=== PATIENT | male | born 1945 | race Caucasian/White ===

== ENCOUNTER 2020-05-24 06:33 | Emergency (ER) | payer OTHER ==
[~2020-05-24] VITALS: Ht 188 cm; Wt 86.2 kg
--- NOTE | ~2020-05-24 | EMS ---
[address] [address] EMS Patient Care Report Name: ISHA VILLEGAS Room #: DEP DEB Banks#: [id number] Admission: 05/24/20 Attend Phys: Discharge: 05/24/20 Date of : 49 Report #: [id number] THIS REPORT FOR: //name// Report Transmitted: 05/24/2020 12:52 EMS Care Summary [facility] MED-ACT Incident [id number] @ 05/24/2020 05:50 Incident Location [address] [place] [address] Patient ISHA VILLEGAS Male, 74 Years 1945 Patient Address [address] [place] [address] Patient History Chronic Obstructive Pulmonary Disease (COPD),Hypertension (HTN),Stroke/CVA,Anxiety, Patient Medications Eliquis, Losartan, Xanax, Buspar, Tamsulosin, Singulair, Simvastatin, Citalopram, Rosuvastatin, Chief Complaint shortness of breath Disposition Transported No Lights/[place] Reason Breathing Problem Transported To [facility] Narrative Pt says he has been having increased difficulty breathing recently. He says that he was not able to sleep very much last night. He says that he feels very anxious sometimes and so he took a "half a xanax" and thinks that that helped a little. Pt has a hx of COPD and is on O2 by nc at 2 LPM at home. He denies [address] [place] [address] EMS Patient Care Report Name: ISHA VILLEGAS Room #: DEP [facility].R.#: [id number] Admission: 05/24/20 Attend Phys: Discharge: 05/24/20 Date of : 49 Report #: [id number] any recent illness. He denies any chest discomfort. He does continue to smoke quite a bit. He had a stroke two years ago and says that he easily becomes anxious since then. He agrees to go to the hospital but does not want to go back to [facility] which is where he has always gone in the past. he says that his doctor "quit him". He wants to go to [facility] this morning for evaluation. [employer] responders on scene had increased his O2 to 3 LPM for shortness of breath. Pt appeared moderately anxious upon EMS contact. Pt seemed to relax when distracted about nonmedical issues. Secured to cot in sitting position. O2 continued by nc. Surgical mask applied. EKG. ER contacted enroute. r/r no further orders. Prepared for IV start. Pt began to have a coughing fit and so SL was not attempted prior to arrival at ER. Released with report in ER. Initial Vitals @PTAP: 76,R: 24,BP: 169/83,Pain: 0/10,GCS: 15,SpO2: 96,Revised Trauma: 12, @06:28P: 81,R: 20,GCS: 15,SpO2: 95, @06:18P: 85,R: 20,Pain: 0/10,GCS: 15,Glucose: 85,SpO2: 96, @06:19P: 82,R: 20,BP: 170/92,GCS: 15,SpO2: 95,Revised Trauma: 12, Assessments @06:15MENTAL:Event Oriented,Time Oriented,Person Oriented,SKIN:No Abnormalities,HEENT:Eyes: Right Pupil: 4-mm,Eyes: Left Pupil: 4-mm,Head/Face: No Abnormalities,LUNG SOUNDS:General: No Abnormalities,Left Upper: No Abnormalities,Right Upper: No Abnormalities,Left Lower: No Abnormalities,Right Lower: No Abnormalities,ABDOMEN:General: No Abnormalities,Left Upper: No Abnormalities,Right Upper: No Abnormalities,Left Lower: No Abnormalities,Right Lower: No Abnormalities,PELVIS//GI:No Abnormalities,EXTREMITIES:Capillary Refill: Left Upper: < 2 Sec,Left Arm: No Abnormalities,Right Arm: No Abnormalities,Left Leg: No Abnormalities,Right Leg: No Abnormalities,PULSE:Radial: 2+ Normal,NEURO: Impression Shortness of breath Procedures @06:15ALS AssessmentResponse: UnchangedSucceeded Timeline ITEM REPAIR MANAGER,BP: 169/83 M,PULSE: 76,RR: 24 R,SPO2: 96 Ox,ETCO2: ,BG: ,PAIN: 0,GCS: 15, 05:49,Call Received 05:49,Psap Call 05:50,Dispatched 05:52,En Route 05:57,On Scene 05:59,At Patient [address] [address] EMS Patient Care Report Name: ISHA VILLEGAS Room #: CATE Banks#: [id number] Admission: 05/24/20 Attend Phys: Discharge: 05/24/20 Date of : 49 Report #: [id number] 06:14,Depart Scene 06:15,ALS Assessment,Response: UnchangedSucceeded, 06:18,BP: / M,PULSE: 85,RR: 20 R,SPO2: 96 Ox,ETCO2: ,B,PAIN: 0,GCS: 15, 06:19,BP: 170/92 M,PULSE: 82,RR: 20 R,SPO2: 95 Ox,ETCO2: ,BG: ,PAIN: ,GCS: 15, 06:28,BP: / M,PULSE: 81,RR: 20 R,SPO2: 95 Ox,ETCO2: ,BG: ,PAIN: ,GCS: 15, 06:30,At Destination 06:54,Call Closed Disclaimer v1.1 Copyright 2020 [employer] This EMS Care Summary contains data elements from the applicable legal record (which may be displayed differently). It is designed to provide pertinent information for the following purposes: continuity of care, clinical quality, and state data reporting. The complete legal record is available to ED staff and administrators of the receiving hospital in [employer] Patient Tracker. All data is provided "as is."
[2020-05-24] MEDS ORDERED: ELIQUIS5 MG PO (06:49)
[2020-05-24] MEDS ORDERED: PROVENTIL HFA6.7 G1 INH (06:50)
[2020-05-24 07:31] LABS: ABSOLUTE NEUTROPHILS 3.6 thou/uL (1.4-8.2); EOSINOPHILS 2.9 % (0.0-3.0); HEMATOCRIT 47.5 % (42.0-52.0); LYMPHOCYTES 19.6 % (24.0-44.0); MCH 30.7 pg (26.0-34.0); MCHC 33.7 g/dL (28.0-37.0); MCV 91.1 fL (80.0-100.0); PLATELET COUNT 140 thou/uL (150-400); POLYS 69.5 % (36.0-66.0); RBC 5.21 mil/uL (4.50-6.00); RDW 14.3 % (10.5-14.5); WBC 5.2 thou/uL (4.0-11.0)
[2020-05-24 07:33] LABS: ANION GAP 9 mmol/L (7-16); BUN 5 mg/dL (7-18); CALCIUM 8.7 mg/dL (8.5-10.1); CHLORIDE 102 mmol/L (98-107); CO2 28 mmol/L (21-32); CREATININE 0.8 mg/dL (0.7-1.3); GLUCOSE 88 mg/dL (74-106); POTASSIUM 3.7 mmol/L (3.5-5.1); SODIUM 139 mmol/L (136-145)
[2020-05-24 07:43] LABS: ALBUMIN 3.5 g/dL (3.4-5.0); MAGNESIUM 1.8 mg/dL (1.8-2.4); SGOT 23 U/L (15-37); SGPT 16 U/L (30-65); TOTAL PROTEIN 6.4 g/dL (6.4-8.2); TROPONIN-I <0.06 ng/mL (<0.06)
[2020-05-24 09:33] LABS: BE(vivo) 1.8 mmol/L (-2 to +3); HCO3 26.8 mmol/L (22.0-26.0); PCO2 VENOUS 43.3 mmHg (41.0-51.0); PO2 VENOUS 63.7 mmHg (35.0-45.0)
[2020-05-24] MEDS ORDERED: ATIVAN0.5 M1 PO (09:46)
[2020-05-24] MEDS ORDERED: VENTOLIN HFA 1818 GM INH (09:46)
[2020-05-24] MEDS ORDERED: DOXYCYCLINE 10100 MG PO (09:46)
[2020-05-24] MEDS ORDERED: PREDNISONE 20 M20 MG PO (09:46)
[2020-05-24 12:18] VITALS: BP 156/87
--- NOTE | 2020-05-26 08:02 | EKG ---
[facility] [place] [address] ELECTROCARDIOGRAM REPORT Name: ISHA VILLEGAS Room #: DEP [facility]#: [id number] Admission: 05/24/20 Attend Phys: Discharge: 05/24/20 Date of : 49 Report #: [id number] THIS REPORT FOR: cc: Tee Buenrostro MD, Bradley MD Lundgren,Rivera Cooper MD [facility] ~ THIS REPORT FOR: //name// [facility] ED Test Date: 2020-05-24 Test Time: 06:44:25 Pat Name: ISHA VILLEGAS Department: Room: Gender: Aircraft General Repair Mechanic: : 1945 Requested By: Daniele Fung Order Number: [id number] MD: Rivera Torres Measurements Intervals [place] Rate: 66 P: 80 AK: 189 QRS: -71 QRSD: 100 T: 62 QT: 404 QTc: 424 Interpretive Statements Sinus rhythm Atrial premature complex Left anterior fascicular block Abnormal R-wave progression, late transition Baseline wander in lead(s) V3 No previous ECG available for comparison Electronically Signed On 05-26-2020 8:02:19 CDT by Rivera Torres [email or web address] <ELECTRONICALLY SIGNED> By: Rivera Torres MD, [facility] 05/26/20 [id number] Rivera Torres MD, [facility] /EPI
== END 2020-05-24 12:47 | disposition home or self-care (01) ==
LOC: ER 06:33
PROVIDERS: Emergency Medicine
DX: J44.1 Chronic obstructive pulmonary disease with (acute) exacerbation (principal); F41.9 Anxiety disorder, unspecified; F17.210 Nicotine dependence, cigarettes, uncomplicated; Z79.899 Other long term (current) drug therapy; Z88.6 Allergy status to analgesic agent